=== PATIENT | male | born 1965 | race Caucasian/White ===

== ENCOUNTER 2021-03-20 19:10 | Inpatient (IN) | payer MEDICAID ==
[2021-03-20] VITALS (7 sets, daily range): BP systolic 86–129; BP diastolic 50–86
[~2021-03-20] VITALS: Ht 185.4 cm; Wt 117.5 kg
[2021-03-20] MEDS ORDERED: PROPOFOL 100 ML IV ONE (19:28)
[2021-03-20] MEDS ORDERED: NOREPINEPHRINE 8 MG/250ML KIT 250 ML IV ONE (19:28)
[2021-03-20] MEDS ORDERED: HEPARIN SODIUM (PORCINE) 5000 UNITS/ML 1ML VIAL IV ONE (19:45)
[2021-03-20] MEDS ORDERED: ANGIOMAX 250 MG VIAL IV ONE ×2 (19:50→20:44)
[2021-03-20] MEDS ORDERED: SODIUM CHL 0.9% 50 ML ONE ×3 (19:50→20:50)
[2021-03-20 19:52] LABS: Hematocrit 39.9 % (41.0-53.0); Hemoglobin 13.9 g/dL (13.5-17.5); Mean Corpuscular Hemoglobin 30.4 pg (28.0-32.0); Mean Corpuscular Hgb Conc. 34.9 g/dL (32.0-36.0); Platelet Count (auto) 218 10^3/uL (140-450); Red Blood Cells 4.59 10^6/uL (4.5-5.90); Red Cell Distribution Width 14.7 % (11.8-14.3); White Blood Cell 12.1 10^3/uL (4.4-10.8)
[2021-03-20 19:58] LABS: Urine Bacteria FEW /hpf (None Seen); Urine Blood 2+ /uL (Negative); Urine Mucus FEW (None Seen); Urine Specific Gravity 1.015 (1.001-1.035); Urine Sperm PRESENT /hpf (None Seen); Urine WBC 70 /hpf (0 - 3)
[2021-03-20 20:04] LABS: Basophils % (manual) 0 (0.0-2.0); Blast Cells 0; Myelocytes % 0; Promyelocytes % 0; Reactive Lymphocytes 0
[2021-03-20 20:05] LABS: Alcohol, Urine < 3.0 mg/dL (0-10); Amphetamine Screen, Urine NEGATIVE (NEGATIVE); Barbiturate Scree,Urine NEGATIVE (NEGATIVE); Benzodiazephine Screen, Urine NEGATIVE (NEGATIVE); Cocaine Screen, Urine NEGATIVE (NEGATIVE); Opiate Scree,Urine NEGATIVE (NEGATIVE); Phencyclidine Screen, Urine NEGATIVE (NEGATIVE)
[2021-03-20 20:12] LABS: INR 1.2 (0.9-1.15)
[2021-03-20 20:13] LABS: Cannabinoid Screen, Urine POSITIVE (NEGATIVE)
[2021-03-20 20:16] LABS: Lactic Acid w/Reflex 6.2 mmol/L (0.4-2.0)
[2021-03-20] MEDS: NOREPINEPHRINE 8 MG/250ML KIT 250 ML IV SCH ×2 (20:30→23:00)
[2021-03-20] MEDS: PROPOFOL 100 ML IV SCH ×2 (20:30→23:48)
[2021-03-20] MEDS ORDERED: niCARdipine 25 MG/10 ML VIAL IV ONE (20:50)
[2021-03-20 20:55] LABS: Calcium 7.7 mg/dL (8.5-10.1)
[2021-03-20 20:56] LABS: Magnesium 1.7 mg/dL (1.6-2.6)
[2021-03-20 20:57] LABS: Albumin 3.5 g/dL (3.4-5.0); BUN/Creatinine Ratio 6.9; Bilirubin, Total 0.6 mg/dL (0.2-1.0); Total Protein 7.4 g/dL (6.4-8.2)
[2021-03-20 20:59] LABS: Potassium 3.1 mmol/L (3.5-5.1)
[2021-03-20 21:03] LABS: Band Neutrophils % (manual) 8; Eosinophils % (manual) 2 (0-7); Lymphocytes % (manual) 39 (10.0-50.0); Monocytes % (manual) 6 (0-12)
[2021-03-20 21:04] LABS: Metamyelocytes % 1
[2021-03-20] MEDS ORDERED: TICAGRELOR 90 MG TAB ONE ×2 (21:17→21:19)
[2021-03-20] MEDS ORDERED: ASPirin 325 MG TAB ONE (21:18)
[2021-03-20] MEDS: TICAGRELOR 90 MG TAB GT SCH (22:00)
[2021-03-20] MEDS: PANTOPRAZOLE 40 MG/10 ML VIAL INJ IV SCH (22:00)
[2021-03-20] MEDS: POTASSIUM CHL 20MEQ/100ML 100 ML IV SCH (22:00)
[2021-03-20] MEDS: MIDAZOLAM DRIP 50 mg/50mL 50 ML IV SCH (22:15)
[2021-03-20] MEDS ORDERED: POTASSIUM EFFERVESENT TAB 25 MEQ GT ONE (23:30)
[2021-03-20] MEDS: PIPERACILLIN-TAZO 4.5GM 100 ML IV SCH (23:48)
[2021-03-21] VITALS (89 sets, daily range): BP systolic 92–188; BP diastolic 55–108
[2021-03-21] MEDS: POTASSIUM CHL 20MEQ/100ML 100 ML IV SCH ×2 (00:19→02:16)
[2021-03-21] MEDS ORDERED: ONDANSETRON HCL 4 MG/2 ML VIAL IV PRN (02:00)
[2021-03-21] MEDS: MIDAZOLAM DRIP 50 mg/50mL 50 ML IV SCH ×2 (03:08→18:50)
[2021-03-21] MEDS: PROPOFOL 100 ML IV SCH ×5 (03:13→20:49)
[2021-03-21 04:28] LABS: Potassium 4.3 mmol/L (3.5-5.1)
[2021-03-21 04:31] LABS: Basophils # (auto) 0 10 ^3/uL (0-0.2); Basophils % (auto) 0.3 % (0.0-2.0); Eosinophils # (auto) 0 10 ^3/uL (0-0.8); Eosinophils % (auto) 0.1 % (0.0-7.0); Hematocrit 41.4 % (41.0-53.0); Hemoglobin 14.6 g/dL (13.5-17.5); Lymphocytes # (auto) 1.2 10 ^3/uL (0.4-5.4); Lymphocytes % (auto) 8.3 % (10.0-50.0); Mean Corpuscular Hemoglobin 30.3 pg (28.0-32.0); Mean Corpuscular Hgb Conc. 35.3 g/dL (32.0-36.0); Monocytes # (auto) 0.9 10 ^3/uL (0-1.3); Neutrophils # (auto) 12.8 10 ^3/uL (1.6-8.6); Neutrophils % (auto) 85.3 % (37.0-80.0); Nucleated Red Blood Cells % 0.1 %; Platelet Count (auto) 218 10^3/uL (140-450); Red Blood Cells 4.81 10^6/uL (4.5-5.90); Red Cell Distribution Width 14.9 % (11.8-14.3)
[2021-03-21 04:40] LABS: Albumin 3.2 g/dL (3.4-5.0); BUN/Creatinine Ratio 9.9; Bilirubin, Total 0.9 mg/dL (0.2-1.0); Calcium 7.6 mg/dL (8.5-10.1); Total Protein 7.1 g/dL (6.4-8.2)
[2021-03-21] MEDS: PIPERACILLIN-TAZO 4.5GM 100 ML IV SCH ×4 (09:14→23:56)
[2021-03-21] MEDS ORDERED: OPTISON 3ml Vial for INJ IV ONE (09:38)
[2021-03-21] MEDS ORDERED: METOPROLOL TARTRATE 25 MG TAB PO SCH (10:00)
[2021-03-21] MEDS: TICAGRELOR 90 MG TAB GT SCH ×2 (10:56→22:17)
[2021-03-21] MEDS: PANTOPRAZOLE 40 MG/10 ML VIAL INJ IV SCH ×2 (10:57→22:18)
[2021-03-21] MEDS: ATORVASTATIN 20 MG TAB PO SCH (10:57)
[2021-03-21] MEDS: ASPirin-EC 81 mg tab PO SCH (10:57)
[2021-03-21] MEDS ORDERED: NITROGLYCERIN 0.4 MG SL TAB SL PRN (14:15)
[2021-03-21] MEDS ORDERED: MORPHINE SULF INJ 2 MG/ML SYRINGE 1ML IV PRN (14:15)
[2021-03-21 15:05] LABS: Cholesterol 119 mg/dL (< 200)
[2021-03-21 15:08] LABS: HDL Cholesterol 34 mg/dL (40-59); LDL Cholesterol 70 mg/dL (< 100); Triglycerides 101 mg/dL (< 150)
[2021-03-21] MEDS: LISINOPRIL 20 MG TAB PO SCH (22:00)
[2021-03-21] MEDS: METOPROLOL TARTRATE 25 MG TAB PO SCH (22:00)
[2021-03-22] VITALS (65 sets, daily range): BP systolic 98–198; BP diastolic 61–133
[2021-03-22] MEDS: PROPOFOL 100 ML IV SCH (02:35)
[2021-03-22 04:03] LABS: Basophils # (auto) 0.1 10 ^3/uL (0-0.2); Basophils % (auto) 0.6 % (0.0-2.0); Eosinophils # (auto) 0.1 10 ^3/uL (0-0.8); Eosinophils % (auto) 1.1 % (0.0-7.0); Hematocrit 40.5 % (41.0-53.0); Hemoglobin 14.1 g/dL (13.5-17.5); Lymphocytes # (auto) 1.5 10 ^3/uL (0.4-5.4); Lymphocytes % (auto) 14.1 % (10.0-50.0); Mean Corpuscular Hemoglobin 30.3 pg (28.0-32.0); Mean Corpuscular Hgb Conc. 34.8 g/dL (32.0-36.0); Mean Corpuscular Volume 87.1 fL (80.0-100.0); Monocytes % (auto) 9.9 % (0.0-12.0); Neutrophils # (auto) 7.8 10 ^3/uL (1.6-8.6); Neutrophils % (auto) 74.3 % (37.0-80.0); Platelet Count (auto) 155 10^3/uL (140-450); Red Blood Cells 4.65 10^6/uL (4.5-5.90); Red Cell Distribution Width 15.1 % (11.8-14.3); White Blood Cell 10.5 10^3/uL (4.4-10.8)
[2021-03-22 04:18] LABS: Albumin 2.9 g/dL (3.4-5.0); Calcium 7.6 mg/dL (8.5-10.1); Magnesium 1.6 mg/dL (1.6-2.6); Potassium 3.6 mmol/L (3.5-5.1)
[2021-03-22 04:23] LABS: BUN/Creatinine Ratio 12.2; Bilirubin, Total 0.9 mg/dL (0.2-1.0); Total Protein 6.6 g/dL (6.4-8.2)
[2021-03-22] MEDS: PIPERACILLIN-TAZO 4.5GM 100 ML IV SCH ×2 (05:39→15:25)
[2021-03-22] MEDS: PANTOPRAZOLE 40 MG/10 ML VIAL INJ IV SCH ×2 (10:02→22:21)
[2021-03-22] MEDS: METOPROLOL TARTRATE 25 MG TAB PO SCH ×2 (10:03→22:00)
[2021-03-22] MEDS: ASPirin-EC 81 mg tab PO SCH (10:03)
[2021-03-22] MEDS: ATORVASTATIN 20 MG TAB PO SCH (10:04)
[2021-03-22] MEDS: TICAGRELOR 90 MG TAB GT SCH ×2 (10:04→22:21)
[2021-03-22] MEDS: LISINOPRIL 20 MG TAB PO SCH ×2 (10:05→22:00)
[2021-03-22] MEDS ORDERED: METOPROLOL TARTRATE 1MG/1ML-5ML VIAL IV PRN (11:00)
[2021-03-22] MEDS ORDERED: METOPROLOL TARTRATE 1MG/1ML-5ML VIAL IV ONE (11:08)
[2021-03-22] MEDS: NOREPINEPHRINE 8 MG/250ML KIT 250 ML IV SCH (20:30)
[2021-03-23] VITALS (86 sets, daily range): BP systolic 104–203; BP diastolic 63–119
[2021-03-23] MEDS: PROPOFOL 100 ML IV SCH ×2 (00:35→06:42)
[2021-03-23 03:51] LABS: Basophils # (auto) 0.1 10 ^3/uL (0-0.2); Basophils % (auto) 1.1 % (0.0-2.0); Eosinophils # (auto) 0.3 10 ^3/uL (0-0.8); Eosinophils % (auto) 3.2 % (0.0-7.0); Hematocrit 38.4 % (41.0-53.0); Hemoglobin 13.5 g/dL (13.5-17.5); Lymphocytes # (auto) 1.4 10 ^3/uL (0.4-5.4); Lymphocytes % (auto) 16.1 % (10.0-50.0); Mean Corpuscular Hemoglobin 30.1 pg (28.0-32.0); Mean Corpuscular Hgb Conc. 35.1 g/dL (32.0-36.0); Mean Corpuscular Volume 85.8 fL (80.0-100.0); Monocytes # (auto) 1.1 10 ^3/uL (0-1.3); Neutrophils % (auto) 67.6 % (37.0-80.0); Platelet Count (auto) 153 10^3/uL (140-450); Red Blood Cells 4.48 10^6/uL (4.5-5.90); Red Cell Distribution Width 14.8 % (11.8-14.3); White Blood Cell 8.9 10^3/uL (4.4-10.8)
[2021-03-23 04:09] LABS: Albumin 2.6 g/dL (3.4-5.0); Calcium 7.6 mg/dL (8.5-10.1); Potassium 3.6 mmol/L (3.5-5.1)
[2021-03-23 04:13] LABS: BUN/Creatinine Ratio 14.1; Total Protein 6.5 g/dL (6.4-8.2)
[2021-03-23] MEDS: MIDAZOLAM DRIP 50 mg/50mL 50 ML IV SCH ×2 (04:22→22:15)
[2021-03-23] MEDS: PIPERACILLIN-TAZO 4.5GM 100 ML IV SCH ×4 (06:38→17:45)
[2021-03-23] MEDS: TICAGRELOR 90 MG TAB GT SCH ×2 (10:00→22:45)
[2021-03-23] MEDS: LISINOPRIL 20 MG TAB PO SCH ×2 (10:16→22:56)
[2021-03-23] MEDS: METOPROLOL TARTRATE 25 MG TAB PO SCH (10:16)
[2021-03-23] MEDS: ATORVASTATIN 20 MG TAB PO SCH (10:16)
[2021-03-23] MEDS: PANTOPRAZOLE 40 MG/10 ML VIAL INJ IV SCH ×2 (10:17→22:45)
[2021-03-23] MEDS: ASPirin-EC 81 mg tab PO SCH (10:17)
[2021-03-23] MEDS: NOREPINEPHRINE 8 MG/250ML KIT 250 ML IV SCH (18:12)
[2021-03-23] MEDS ORDERED: LABETALOL HCL 5 MG/ML 4ML SYRINGE IV ONE (18:30)
[2021-03-23] MEDS: METOPROLOL TARTRATE 50 MG TAB PO SCH (19:55)
[2021-03-23] MEDS: ACETAMINOPHEN 325 MG TAB PO PRN (21:18)
[2021-03-24] VITALS (52 sets, daily range): BP systolic 118–176; BP diastolic 56–120
[2021-03-24] MEDS: PIPERACILLIN-TAZO 4.5GM 100 ML IV SCH ×5 (00:30→23:32)
[2021-03-24] MEDS ORDERED: LORazepam 2MG/ML-1ML VIAL ONE (02:20)
[2021-03-24] MEDS: LORazepam 2MG/ML-1ML VIAL IV PRN ×3 (02:49→23:22)
[2021-03-24] MEDS: ACETAMINOPHEN 325 MG TAB PO PRN (05:12)
[2021-03-24 07:16] LABS: Basophils # (auto) 0.2 10 ^3/uL (0-0.2); Basophils % (auto) 1.3 % (0.0-2.0); Eosinophils # (auto) 0.1 10 ^3/uL (0-0.8); Eosinophils % (auto) 0.9 % (0.0-7.0); Hematocrit 45.4 % (41.0-53.0); Hemoglobin 15.7 g/dL (13.5-17.5); Lymphocytes # (auto) 1.5 10 ^3/uL (0.4-5.4); Lymphocytes % (auto) 12.1 % (10.0-50.0); Mean Corpuscular Hemoglobin 29.7 pg (28.0-32.0); Mean Corpuscular Hgb Conc. 34.6 g/dL (32.0-36.0); Mean Corpuscular Volume 85.8 fL (80.0-100.0); Monocytes # (auto) 1.4 10 ^3/uL (0-1.3); Monocytes % (auto) 11.4 % (0.0-12.0); Neutrophils # (auto) 9.3 10 ^3/uL (1.6-8.6); Neutrophils % (auto) 74.3 % (37.0-80.0); Nucleated Red Blood Cells % 0.3 %; Platelet Count (auto) 216 10^3/uL (140-450); Red Blood Cells 5.29 10^6/uL (4.5-5.90); Red Cell Distribution Width 14.2 % (11.8-14.3); White Blood Cell 12.5 10^3/uL (4.4-10.8)
[2021-03-24 07:28] LABS: Albumin 3.1 g/dL (3.4-5.0); Calcium 8.2 mg/dL (8.5-10.1); Magnesium 1.7 mg/dL (1.6-2.6)
[2021-03-24 07:34] LABS: Bilirubin, Total 1.4 mg/dL (0.2-1.0)
[2021-03-24 07:42] LABS: Potassium 2.9 mmol/L (3.5-5.1)
[2021-03-24] MEDS: LISINOPRIL 20 MG TAB PO SCH ×2 (10:03→21:39)
[2021-03-24] MEDS: MAGNESIUM SULFATE 1GM/100ML 100 ML IV SCH ×3 (10:04→13:32)
[2021-03-24] MEDS: PANTOPRAZOLE 40 MG/10 ML VIAL INJ IV SCH ×2 (10:04→21:38)
[2021-03-24] MEDS: METOPROLOL TARTRATE 50 MG TAB PO SCH ×2 (10:04→21:39)
[2021-03-24] MEDS: TICAGRELOR 90 MG TAB GT SCH ×2 (10:04→21:39)
[2021-03-24] MEDS: ATORVASTATIN 20 MG TAB PO SCH (10:04)
[2021-03-24] MEDS: ASPirin-EC 81 mg tab PO SCH (10:04)
[2021-03-24] MEDS ORDERED: POTASSIUM CHL 20 Meq TABLET PO ONE (10:15)
[2021-03-24] MEDS ORDERED: POTASSIUM EFFERVESENT TAB 25 MEQ GT ONE ×2 (12:00→18:45)
[2021-03-24] MEDS ORDERED: cloNIDine HCL 0.1 MG TAB PO PRN (13:45)
[2021-03-24] MEDS ORDERED: HYDROcodone-ACET 5/325MG TAB PO PRN (16:00)
[2021-03-24] MEDS ORDERED: ASPI1TAB19 PO (16:29)
[2021-03-24] MEDS ORDERED: METO25TA5 PO (16:29)
[2021-03-24] MEDS ORDERED: CLON0.1T PO ×2 (16:29→16:33)
[2021-03-24] MEDS ORDERED: GABA-339 PO (16:29)
[2021-03-24] MEDS ORDERED: GABA300C10 PO (16:29)
[2021-03-24] MEDS ORDERED: ATOR80TA PO (16:33)
[2021-03-24] MEDS ORDERED: NIFE1TAB31 PO (16:33)
[2021-03-24] MEDS ORDERED: INDO50CA82 PO (16:33)
[2021-03-24] MEDS ORDERED: ALLO100T PO (16:33)
[2021-03-24] MEDS ORDERED: METF-371 PO (16:33)
[2021-03-24] MEDS ORDERED: DEXTROSE (50%) 50ML SYRG IV PRN (16:45)
[2021-03-24] MEDS ORDERED: HYDROcodone-ACET 10/325MG TAB PO PRN (16:45)
[2021-03-24] MEDS: InsuLIN REG 1unit/0.01ml Soln (100units/ml) SC SCH ×2 (17:00→21:58)
[2021-03-24] MEDS: ACCU-CHEK COMFORT CURVE STRIP VI SCH ×2 (17:16→21:39)
[2021-03-24 18:19] LABS: Magnesium 2.1 mg/dL (1.6-2.6); Potassium 3.4 mmol/L (3.5-5.1)
[2021-03-24] MEDS: GABAPENTIN 300 MG CAP PO SCH (21:38)
[2021-03-24] MEDS: MAGNESIUM OXIDE 400 MG TAB PO SCH (21:39)
[2021-03-24] MEDS ORDERED: cloNIDine HCL 0.1 MG TAB PO SCH (22:00)
[2021-03-25] VITALS (11 sets, daily range): BP systolic 102–178; BP diastolic 67–111
[2021-03-25] MEDS: LORazepam 2MG/ML-1ML VIAL IV PRN ×2 (05:30→15:15)
[2021-03-25 06:16] LABS: Calcium 8.4 mg/dL (8.5-10.1); Potassium 3.3 mmol/L (3.5-5.1)
[2021-03-25 06:18] LABS: BUN/Creatinine Ratio 13.4
[2021-03-25] MEDS: ACCU-CHEK COMFORT CURVE STRIP VI SCH ×4 (07:00→23:43)
[2021-03-25] MEDS: InsuLIN REG 1unit/0.01ml Soln (100units/ml) SC SCH ×4 (07:00→23:44)
[2021-03-25] MEDS: PIPERACILLIN-TAZO 4.5GM 100 ML IV SCH ×4 (07:47→23:46)
[2021-03-25] MEDS ORDERED: LORazepam 2MG/ML-1ML VIAL IV PRN (08:15)
[2021-03-25] MEDS: ATORVASTATIN 20 MG TAB PO SCH (10:09)
[2021-03-25] MEDS: ASPirin-EC 81 mg tab PO SCH (10:09)
[2021-03-25] MEDS: PANTOPRAZOLE 40 MG/10 ML VIAL INJ IV SCH ×2 (10:09→23:41)
[2021-03-25] MEDS: GABAPENTIN 300 MG CAP PO SCH ×2 (10:10→23:42)
[2021-03-25] MEDS: METOPROLOL TARTRATE 50 MG TAB PO SCH ×2 (10:10→23:42)
[2021-03-25] MEDS: LISINOPRIL 20 MG TAB PO SCH ×2 (10:10→23:43)
[2021-03-25] MEDS: ALLOPURINOL 100 MG TAB PO SCH (10:11)
[2021-03-25] MEDS: MAGNESIUM OXIDE 400 MG TAB PO SCH ×2 (10:11→23:42)
[2021-03-25] MEDS: TICAGRELOR 90 MG TAB GT SCH ×2 (10:11→23:40)
[2021-03-25] MEDS ORDERED: HALOPERIDOL LACTATE 5 MG/ML INJ VIAL ONE (15:21)
[2021-03-25] MEDS: HALOPERIDOL LACTATE 5 MG/ML INJ VIAL IM PRN (15:28)
[2021-03-26] VITALS (30 sets, daily range): BP systolic 126–174; BP diastolic 57–115
[2021-03-26] MEDS: LORazepam 2MG/ML-1ML VIAL IV PRN (00:01)
[2021-03-26] MEDS: PIPERACILLIN-TAZO 4.5GM 100 ML IV SCH ×4 (06:00→23:52)
[2021-03-26] MEDS: InsuLIN REG 1unit/0.01ml Soln (100units/ml) SC SCH ×4 (07:00→22:00)
[2021-03-26] MEDS: ACCU-CHEK COMFORT CURVE STRIP VI SCH ×4 (07:27→22:16)
[2021-03-26 07:31] LABS: Basophils # (auto) 0 10 ^3/uL (0-0.2); Basophils % (auto) 0.4 % (0.0-2.0); Eosinophils # (auto) 0.5 10 ^3/uL (0-0.8); Eosinophils % (auto) 5.3 % (0.0-7.0); Hematocrit 43.1 % (41.0-53.0); Lymphocytes # (auto) 1.4 10 ^3/uL (0.4-5.4); Lymphocytes % (auto) 16.2 % (10.0-50.0); Mean Corpuscular Hemoglobin 29.7 pg (28.0-32.0); Mean Corpuscular Hgb Conc. 34.7 g/dL (32.0-36.0); Mean Corpuscular Volume 85.7 fL (80.0-100.0); Monocytes # (auto) 1.4 10 ^3/uL (0-1.3); Monocytes % (auto) 16.1 % (0.0-12.0); Neutrophils # (auto) 5.5 10 ^3/uL (1.6-8.6); Nucleated Red Blood Cells % 0.1 %; Platelet Count (auto) 217 10^3/uL (140-450); Red Blood Cells 5.03 10^6/uL (4.5-5.90); Red Cell Distribution Width 14.4 % (11.8-14.3); White Blood Cell 8.9 10^3/uL (4.4-10.8)
[2021-03-26] MEDS ORDERED: LIDOCAINE 2%HCL (LOCAL ANESTH.) INJ 20ML MDV ONE (07:39)
[2021-03-26] MEDS ORDERED: IODIXANOL 320MG/ML 100ML BTL IV ONE (07:40)
[2021-03-26] MEDS ORDERED: HEPARIN IN NS 1000Units/500mL 1,500 ML ONE (07:40)
[2021-03-26 07:43] LABS: BUN/Creatinine Ratio 21.9; Calcium 8.8 mg/dL (8.5-10.1); Magnesium 2.2 mg/dL (1.6-2.6); Potassium 3.6 mmol/L (3.5-5.1)
[2021-03-26 07:51] LABS: INR 1.08 (0.9-1.15); Partial Thromboplastin Time 25.6 sec (23.0-31.2)
[2021-03-26] MEDS ORDERED: ATROPINE SULF 1 MG/10ml SYR ONE (07:53)
[2021-03-26] MEDS ORDERED: fentaNYL CITRATE 100 MCG/2 ML VL ONE (07:53)
[2021-03-26] MEDS ORDERED: MIDAZOLAM HCL 1MG/1ML-2 ML VIAL ONE (07:53)
[2021-03-26] MEDS ORDERED: SODIUM CHL 0.9% 50 ML ONE (07:53)
[2021-03-26] MEDS ORDERED: diphenhdrAMINE HCL 50 MG/1 ML VL ONE (07:53)
[2021-03-26] MEDS ORDERED: ANGIOMAX 250 MG VIAL IV ONE (07:53)
[2021-03-26] MEDS ORDERED: niCARdipine 25 MG/10 ML VIAL IV ONE (07:55)
[2021-03-26] MEDS: ATORVASTATIN 20 MG TAB PO SCH (09:59)
[2021-03-26] MEDS: GABAPENTIN 300 MG CAP PO SCH ×2 (09:59→22:15)
[2021-03-26] MEDS: ASPirin-EC 81 mg tab PO SCH (09:59)
[2021-03-26] MEDS: METOPROLOL TARTRATE 50 MG TAB PO SCH ×2 (10:00→22:15)
[2021-03-26] MEDS: MAGNESIUM OXIDE 400 MG TAB PO SCH ×2 (10:00→22:15)
[2021-03-26] MEDS: ALLOPURINOL 100 MG TAB PO SCH (10:00)
[2021-03-26] MEDS: TICAGRELOR 90 MG TAB GT SCH ×2 (10:00→22:15)
[2021-03-26] MEDS: LISINOPRIL 20 MG TAB PO SCH ×2 (10:01→22:16)
[2021-03-26] MEDS: PANTOPRAZOLE 40 MG/10 ML VIAL INJ IV SCH (10:01)
[2021-03-26] MEDS: HALOPERIDOL LACTATE 5 MG/ML INJ VIAL IM PRN (16:30)
[2021-03-27] VITALS (20 sets, daily range): BP systolic 113–174; BP diastolic 76–117
[2021-03-27] MEDS: LORazepam 2MG/ML-1ML VIAL IV PRN ×2 (03:37→17:59)
[2021-03-27] MEDS: PIPERACILLIN-TAZO 4.5GM 100 ML IV SCH ×3 (05:41→18:00)
[2021-03-27] MEDS: ACCU-CHEK COMFORT CURVE STRIP VI SCH ×3 (06:19→17:15)
[2021-03-27] MEDS: InsuLIN REG 1unit/0.01ml Soln (100units/ml) SC SCH ×3 (06:20→17:45)
[2021-03-27] MEDS: ATORVASTATIN 20 MG TAB PO SCH (10:04)
[2021-03-27] MEDS: LISINOPRIL 20 MG TAB PO SCH (10:04)
[2021-03-27] MEDS: TICAGRELOR 90 MG TAB GT SCH (10:05)
[2021-03-27] MEDS: GABAPENTIN 300 MG CAP PO SCH (10:05)
[2021-03-27] MEDS: ALLOPURINOL 100 MG TAB PO SCH (10:05)
[2021-03-27] MEDS: METOPROLOL TARTRATE 50 MG TAB PO SCH (10:05)
[2021-03-27] MEDS: PANTOPRAZOLE 40 MG/10 ML VIAL INJ IV SCH (10:05)
[2021-03-27] MEDS: MAGNESIUM OXIDE 400 MG TAB PO SCH (10:05)
[2021-03-27] MEDS: ASPirin-EC 81 mg tab PO SCH (10:05)
[2021-03-27] MEDS ORDERED: TICA90TA PO (10:41)
[2021-03-27] MEDS ORDERED: TAMSULOSIN HYDROCHLORIDE 0.4 MG CAP PO ONE (10:45)
[2021-03-27] MEDS ORDERED: METOPROLOL TARTRATE 1MG/1ML-5ML VIAL IV PRN (14:30)
[2021-03-27] MEDS ORDERED: TAMSULOSIN HYDROCHLORIDE 0.4 MG CAP PO SCH (18:00)
[2021-03-27] MEDS ORDERED: QUEtiapine FUMARATE 25 MG TAB PO ONE (18:30)
[2021-03-27] MEDS ORDERED: cloNIDine HCL 0.1 MG TAB PO SCH (22:00)
[2021-03-27] MEDS ORDERED: QUEtiapine FUMARATE 25 MG TAB PO SCH (22:00)
== END 2021-03-27 20:58 | DRG 174 ==
LOC: EDSEX 19:10 → EDBD 19:10 → ER 19:15 → ICU WEST 22:02 → DOU IN ICU 03-25 03:22
PROVIDERS: ADMIT Nurse Practitioner Acute Care; ATTEND Hospitalist
PROC: 5A1945Z Respiratory Ventilation, 24-96 Consecutive Hours (ICD-10-PCS; principal; 2021-03-20)
PROC: 027035Z Dilation of Coronary Artery, One Artery with Two Drug-eluting Intraluminal Devices, Percutaneous Approach (ICD-10-PCS; 2021-03-20)
PROC: 5A12012 Performance of Cardiac Output, Single, Manual (ICD-10-PCS; 2021-03-20)
PROC: 0BH17EZ Insertion of Endotracheal Airway into Trachea, Via Natural or Artificial Opening (ICD-10-PCS; 2021-03-20)
PROC: B41FYZZ Fluoroscopy of Right Lower Extremity Arteries using Other Contrast (ICD-10-PCS; 2021-03-20)
PROC: 02C03ZZ Extirpation of Matter from Coronary Artery, One Artery, Percutaneous Approach (ICD-10-PCS; 2021-03-20)
PROC: B241ZZ3 Ultrasonography of Multiple Coronary Arteries, Intravascular (ICD-10-PCS; 2021-03-20)
PROC: 4A023N7 Measurement of Cardiac Sampling and Pressure, Left Heart, Percutaneous Approach (ICD-10-PCS; 2021-03-20)
PROC: B211YZZ Fluoroscopy of Multiple Coronary Arteries using Other Contrast (ICD-10-PCS; 2021-03-20)
PROC: B215YZZ Fluoroscopy of Left Heart using Other Contrast (ICD-10-PCS; 2021-03-20)
PROC: 027034Z Dilation of Coronary Artery, One Artery with Drug-eluting Intraluminal Device, Percutaneous Approach (ICD-10-PCS; 2021-03-26)
PROC: 02C03ZZ Extirpation of Matter from Coronary Artery, One Artery, Percutaneous Approach (ICD-10-PCS; 2021-03-26)
PROC: B241ZZ3 Ultrasonography of Multiple Coronary Arteries, Intravascular (ICD-10-PCS; 2021-03-26)
PROC: B41FYZZ Fluoroscopy of Right Lower Extremity Arteries using Other Contrast (ICD-10-PCS; 2021-03-26)
PROC: B211YZZ Fluoroscopy of Multiple Coronary Arteries using Other Contrast (ICD-10-PCS; 2021-03-26)
DX: I21.09 ST elevation (STEMI) myocardial infarction involving other coronary artery of anterior wall (principal); I46.9 Cardiac arrest, cause unspecified; J96.01 Acute respiratory failure with hypoxia; E87.2 Acidosis; I10 Essential (primary) hypertension; E66.9 Obesity, unspecified; E87.6 Hypokalemia; J98.11 Atelectasis; E11.9 Type 2 diabetes mellitus without complications; G93.1 Anoxic brain damage, not elsewhere classified; I16.9 Hypertensive crisis, unspecified; Z78.1 Physical restraint status; Z79.899 Other long term (current) drug therapy; Z86.73 Personal history of transient ischemic attack (TIA), and cerebral infarction without residual deficits; I25.10 Atherosclerotic heart disease of native coronary artery without angina pectoris; I25.2 Old myocardial infarction; I49.01 Ventricular fibrillation; Z20.822 Contact with and (suspected) exposure to COVID-19; Z79.82 Long term (current) use of aspirin; Z95.5 Presence of coronary angioplasty implant and graft; Z68.36 Body mass index [BMI] 36.0-36.9, adult
CPT/HCPCS: 36415; 36600; 70450; 71045; 80048; 80053; 80061; 80307; 81001; 82805; 82962; 83036; 83605; 83735; 83880; 84132; 84484; 85007; 85025; 85027; 85379; 85610; 85730; 87040; 87070; 87077; 87081; 87086; 87186; 87205; 87426; 92928; 92950; 92973; 93005; 93306; 93458; 94002; 94003; 94640; 95819; 96360; 96361; 97110; 97116; 97163; 97530; 99152; 99153; 99291; C1874; C9113; G0378; J1815; J2250; J2543; J2704; J3480; J3490; J7060; Q9956; Q9967